=== PATIENT | female | born 1960 | race Caucasian/White ===

== ENCOUNTER 2024-12-14 10:51 | Outpatient (CLI) | payer MEDICARE ==
--- NOTE | 2024-12-14 13:22 | RADIOLOGY REPORT ---
EXAM: MR MRI LOWER EXTREMITY RIGHT HISTORY: PAIN IN RIGHT KNEE, PAIN IN LEFT KNEE COMPARISON: None TECHNIQUE: Multiplanar, multisequence imaging of the right knee was performed without contrast FINDINGS: MEDIAL COMPARTMENT: Complex tearing of the central body of the medial meniscus with longitudinal vert ical type component of the peripheral 1/3. No focal chondrosis or subchondral edema. LATERAL COMPARTMENT: Globular signal of the inner 1/3 of the central body which may be compatible wit h inner 1/3 tearing. No focal chondrosis or subchondral edema. PATELLOFEMORAL COMPARTMENT: No focal chondrosis or subchondral edema. CRUCIATE LIGAMENTS: Intact anterior and posterior cruciate ligaments. MEDIAL SUPPORTING STRUCTURES: Intact medial collateral ligament. LATERAL SUPPORTING STRUCTURES: Intact iliotibial band, lateral capsular ligament, fibular collateral ligament, popliteus, and biceps femoris tendons EXTENSOR MECHANISM: Intact JOINT SPACE/FLUID: No joint effusion. BONES: No acute fracture, osseous contusion, or aggressive focal osseous lesion. Insertional subcorti victor manuel cystic change of the posterolateral tibial plateau and tibial footprint of the posterior cruciate ligament. MUSCLES: Normal in signal intensity and morphology NEUROVASCULAR: Unremarkable OTHER: None IMPRESSION: 1. Complex tearing of the central body of the medial meniscus with longitudinal vertical type compone nt of the peripheral 1/3. 2. Globular signal of the inner 1/3 of the central body which may be compatible with inner 1/3 tearin gSindy
--- NOTE | 2024-12-14 13:25 | RADIOLOGY REPORT ---
EXAM: MR MRI LOWER EXTREMITY LEFT HISTORY: PAIN IN L KNEE, PAIN IN R KNEE COMPARISON: None TECHNIQUE: Multiplanar, multisequence imaging of the left knee was performed without contrast FINDINGS: MEDIAL COMPARTMENT: Globular signal extending to the peripheral and inferior meniscal surface of the central body compatible with tearing. No focal chondrosis or subchondral edema. LATERAL COMPARTMENT: Trace possible incomplete radial type tear of the inner 1/3 of the posterior bod y to posterior horn (6-6). No focal chondrosis or subchondral edema. PATELLOFEMORAL COMPARTMENT: No focal chondrosis or subchondral edema. CRUCIATE LIGAMENTS: Intact anterior and posterior cruciate ligaments. MEDIAL SUPPORTING STRUCTURES: Intact medial collateral ligament. Question minimal edematous signal al ruthie the distal semimembranosus insertion of the posterior tibia which may reflect tendinitis. LATERAL SUPPORTING STRUCTURES: Intact iliotibial band, lateral capsular ligament, fibular collateral ligament, popliteus, and biceps femoris tendons EXTENSOR MECHANISM: Intact JOINT SPACE/FLUID: No joint effusion. BONES: No acute fracture, osseous contusion, or aggressive focal osseous lesion MUSCLES: Normal in signal intensity and morphology NEUROVASCULAR: Unremarkable OTHER: None IMPRESSION: 1. Globular signal extending to the peripheral and inferior meniscal surface of the central body comp atible with tearing. 2. Trace possible incomplete radial type tear of the inner 1/3 of the posterior body to posterior hor n. 3. Question minimal edematous signal along the distal semimembranosus insertion of the posterior tibi a which may reflect tendinitis.
== END 2024-12-14 23:59 | disposition home or self-care (01) ==
LOC: MRI02 10:51
PROVIDERS: ATTEND Student in an Organized Health Care Education/Training Program
DX: S83.232A Complex tear of medial meniscus, current injury, left knee, initial encounter (principal); M25.561 Pain in right knee; M25.562 Pain in left knee; X58.XXXA Exposure to other specified factors, initial encounter; Y93.89 Activity, other specified; Y92.89 Other specified places as the place of occurrence of the external cause; Y99.8 Other external cause status; M25.862 Other specified joint disorders, left knee
CPT/HCPCS: 73721